=== PATIENT | male | born 1955 | race Caucasian/White ===

== ENCOUNTER → 2024-12-26 09:30 | Outpatient (REF) | payer SELFPAY | LOC: HWRAD 09:30 | PROVIDERS: ATTENDING PHYSICIAN Internal Medicine Cardiovascular Disease; FAMILY PHYSICIAN Internal Medicine | DX: R00.0 Tachycardia, unspecified (principal); Z68.31 Body mass index [BMI] 31.0-31.9, adult; K21.9 Gastro-esophageal reflux disease without esophagitis; D69.6 Thrombocytopenia, unspecified; I10 Essential (primary) hypertension; Z13.6 Encounter for screening for cardiovascular disorders | CPT/HCPCS: 75571 ==

== ENCOUNTER → 2025-01-11 13:47 | Outpatient (REF) | payer OTHER, SELFPAY | LOC: HWRAD 13:47 | PROVIDERS: ATTENDING PHYSICIAN Internal Medicine Cardiovascular Disease; FAMILY PHYSICIAN Internal Medicine | DX: R01.1 Cardiac murmur, unspecified (principal); I25.84 Coronary atherosclerosis due to calcified coronary lesion; Z87.891 Personal history of nicotine dependence; Z82.49 Family history of ischemic heart disease and other diseases of the circulatory system; I10 Essential (primary) hypertension; Z13.6 Encounter for screening for cardiovascular disorders; Z68.31 Body mass index [BMI] 31.0-31.9, adult; K21.9 Gastro-esophageal reflux disease without esophagitis; D69.6 Thrombocytopenia, unspecified | CPT/HCPCS: 71250 ==

== ENCOUNTER 2025-01-26 12:50 | Day surgery (SDC) | payer OTHER, SELFPAY ==
[2025-01-26] VITALS (15 sets, daily range): BP systolic 121–181; BP diastolic 69–121; BMI 32.4
[2025-01-26] MEDS: NSS 290 ML IV (13:53)
[2025-01-26 16:30] LABS: ACT-LR - POC 350 Seconds (116-155)
[2025-01-26 16:53] LABS: ACT-LR - POC 284 Seconds (116-155)
[2025-01-26 17:21] LABS: ACT-LR - POC 361 Seconds (116-155)
[2025-01-26] MEDS: NSS 1000 IV (18:43)
[2025-01-26] MEDS: CRESTOR 20 MG PO (18:45)
--- NOTE | 2025-01-26 19:18 | PTCARENOTE ---
Pt received at 1810 post cath procedure. Right radial band intact and WNL. Denies any pain or discomfort. SR, rate in the 80's to 90's.
--- NOTE | 2025-01-26 19:31 | ITS.CL.PN ---
[facility] - Procedure Note
Procedure
Procedure Note:
CARDIAC CATHETERIZATION REPORT
Date of Procedure: 01/26/2025
Referring: Dr. Alirio Guzman MD
Indication: dyspnea on exertion, positive cardiac stress test, known CAD
PROCEDURE(S)
1. right heart catheterization
2. left heart catheterization
3. coronary angiography
4. iFR LAD
5. IVUS RCA
6. PCI with NAZANIN to distal RCA
7. PCI with NAZANIN to proximal RCA
ACCESS
1. 6F right radial artery (closure: radial band)
2. 5F right antecubital vein (closure: manual hemostasis)
CATHETERS
1. 5F [place]
2. 6F [place]
3. 6F AL1
4. 6F JR4
5. 6F JL3.5
6. 6F JR4 guide
7. 6F XB3.5 guide
MODERATE SEDATION: 75 minutes of moderate sedation was utilized. An independent medical language specialist was present to assist with and help manage the patient's level of consciousness and physiologic status.
HEMODYNAMIC DATA
LV 151/13 (EDP 17) mmHg
AO 126/80 (mean 100) mmHg
RA 14 mmHg
RV 32/11 (EDP 14) mmHg
PA 35/18 (mean 25) mmHg
PCWP 15 mmHg
SaO2 91.4%
SvO2 69.2%
Hb 14.3 g/dL
Weight [ ] kg
CO/CI 6.07/2.90 L/min/m2
SVR 1132 dsc*-5
PVR 132 [place] units
Valve Study: mean gradient 37.67 mmHg at a heart rate of 91 bpm giving a stroke volume index of 31.8 mL and valve are of 0.90 cm2 (0.43 cm2/m2)
CORONARY ANGIOGRAPHY
Dominance: right
LM: Large, normal
LAD: Large vessel giving rise to a large D1 and multiple smaller diagonal branches before wrapping around the apex. There is a 50% stenosis in the mid vessel between D2 and D3. This was further assessed by IFR and found to be negative.
LCx: Large vessel giving rise to a small OM1, large OM 2, moderate caliber OM 3, small LPL 1, and moderate caliber LPL 2 and small LPL 3. There is diffuse mild disease.
RCA: Large vessel giving rise to a moderate caliber RPDA and moderate caliber RPL branch. There is a 60% focal stenosis in the proximal vessel, diffuse up to 40% disease in the mid vessel, and a focal 90% stenosis in the distal vessel just before
the RPDA takeoff.
iFR of mid LAD
Heparin was given to achieve ACT greater than 250. An Omni wire was flushed and zeroed outside the body and then advanced to the left main. The wire introducer was removed and the catheter flushed with saline, after which pressure of the wire and
guide were normalized. The wire was advanced to the mid LAD and iFR recorded at 0.94. On return to the left main, iFR appropriately normalized to ~1.0, confirming lack of wire drift.
PCI with NAZANIN to RCA
Additional heparin was given to achieve ACT greater than 300. A Runthrough wire was placed in the distal RPDA and initial lesion preparation performed with a 2.0 semicompliant balloon with full expansion. IVUS was performed demonstrating a 3.25 mm
reference vessel diameter. Stenting was performed with a 3.0 x 23 mm Xience Skypoint NAZANIN postdilated to high-pressure with a 3.25 mm NC balloon. IVUS demonstrated full stent expansion and apposition with no edge dissections. There is noted to be a
small iatrogenic dissection at the site of the proximal 60% stenosis. Stenting of this area was performed with a 3.25 x 15 mm Xience Skypoint drug-eluting stent postdilated to high-pressure with a 3.5 mm NC balloon. IVUS was performed and
demonstrated full stent sizing and apposition without edge dissection. Final angiographic result was outstanding. The wire and guide were removed and a TR band placed. The patient was loaded with 600 mg of Plavix.
CONCLUSIONS
1. Coronary artery disease as noted with high-grade disease in the distal RCA and and proximal RCA, and IFR negative moderate stenosis in the mid LAD.
2. Hemodynamics with mildly elevated biventricular filling pressures and normal cardiac output
3. Aortic valve study with dual-lumen catheter demonstrates low-flow low-gradient moderate-severe aortic valve stenosis.
RECOMMENDATIONS
1. Aggressive secondary prevention of coronary artery disease.
2. DAPT for at least 6 months with aspirin and Plavix.
3. Cardiac rehab.
4. Close monitoring of symptoms and valve gradients with workup for AVR (TAVR versus TAVR) should valve gradients increase or symptoms persist despite revascularization.
Copy to: Dr. Alirio Guzman MD (protection consultant); Dr. Santosh Manuel MD (PCP)
Signed: Samm Burden MD, PhD
--- NOTE | 2025-01-26 23:58 | PTCARENOTE ---
Patient received at change of shift resting in the bed. Right radial TR band intact. Right brachial dressing C/D/I. Radial pulse palpable. Pox right hand 93-97%, patient on room air. Sinus rhythm on telemetry. The patient denies chest pain or
pressure. Once ordered bedrest was completed the patient ambulated and voided in the bathroom without issue. The TR band initially oozed when air was first removed but was later able to be removed per protocol without further issue, gauze and
tegaderm applied which remains C/D/I. Right brachial site remains C/D/I. Call guardado within reach. Plan of care discussed. Care ongoing.
[2025-01-27 02:59] VITALS: BP 147/83
[2025-01-27 03:45] LABS: Hematocrit 41.0 % (39.0-52.0); Hemoglobin 14.5 g/dL (13.0-18.0); Mean Corp Hgb Conc. 35.4 g/dL (33.0-37.0); Mean Corpuscular Volume 86.1 fL (80.0-94.0); Platelet Count 117 10^3/uL (130-400); Red Cell Dist. Width 14.5 % (11.5-14.5)
[2025-01-27 04:08] LABS: Blood Urea Nitrogen 14 mg/dl (9-20); Calcium 8.8 mg/dl (8.4-10.2); Carbon Dioxide 24 mmol/L (22-30); Chloride 108 mmol/L (98-107); Estimated Creatinine Clearance 90 ml/min; Glucose 88 mg/dl (70-99); HDL Cholesterol 42 mg/dl; LDL Cholesterol, Calculated 32 mg/dl; Magnesium 2.2 mg/dl (1.6-2.3); Potassium 4.0 mmol/L (3.5-5.1); Sodium 139 mmol/L (135-145); Very Low Density Lipoprotein 37 mg/dl (0-30); eGFR > 60.00
[2025-01-27 04:58] LABS: Hepatitis C Antibody Negative (Negative)
[2025-01-27 07:51] VITALS: BP 146/85
--- NOTE | 2025-01-27 08:03 | W.PN.CARDCBS ---
Addendum entered and electronically signed by Samm Burden MD 01/27/25 11:01:
PCI with DESx2 to RCA yesterday, doing well. Cath also notable for mod-severe low flow low gradient with mean gradient 37, valve area 0.9.
Cath site looks clean
Labs stable
Short 7 beat NSVT on tele
--> cont. DAPT with ASA/Plavix for 6 months
--> cont. metop
--> increase statin to high intensity (despite low LDL given severe disease and young age)
--> check Lp(a) as outpatient given significant CAD despite well controlled LDL
--> will need close follow up of aortic valve. if dyspnea continues despite RCA revasc, would recommend further workup for AVR (SAVR vs. TAVR).
Ok for discharge this morning.
Addendum entered and electronically signed by LEANN Vera 01/27/25 09:05:
tele SR with on 7b NSVT o/n, continue metoprolol xl 100mg
Original Note:
Today's Communication / Plan
-
post PCI RCA stable for d/c home
Impression / Plan
-
PCP: Santosh Manuel MD
CDY: Mehran Guzman MD
Impression/Plan:
#Abnormal NST/CAD - post cath with IFR negative mid LAD lesion and distal RCA 90% stenosis post PCI RCA x2 (3.0 x 23 mm, 3.25 x 15 mm Xience Skypoint NAZANIN)
denies cp, rad site stable, tele SR no ectopy
DAPT ASA/Plavix, Stop Isosorbide
LDL 32 TG 189 will increase rosuvastatin to 20mg
Cardiac rehab c/s
#Moderate-Severe - low-flow low-gradient, will need to monitor symptoms and valve gradients for future w/u SAVR vs TAVR
mean gradient 37.67 mmHg at a heart rate of 91 bpm giving a stroke volume index of 31.8 mL and valve are of 0.90 cm2 (0.43 cm2/m2)
#HTN - continue metoprolol xl
#GERD - continue omeprazole
#Pulmonary nodule/mild emphysema - seen on Calcium score CT scan. He is following with Pulmonary outpt. Dyspnea has improved on Ellipta
#Thrombocytopenia - PLT 117, with DAPT will check CBC in 2 weeks
home today
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
Subjective
Date of Service: January 27, 2025
denies cp, sob
Objective
Labs:
01/27/25 03:03
01/27/25 03:03
Labs
Hgb 14.5 g/dL (13.0-18.0) 01/27/25 03:03
Hct 41.0 % (39.0-52.0) 01/27/25 03:03
Plt Count 117 10^3/uL (130-400) L 01/27/25 03:03
Sodium 139 mmol/L (135-145) 01/27/25 03:03
Potassium 4.0 mmol/L (3.5-5.1) 01/27/25 03:03
BUN 14 mg/dl (9-20) 01/27/25 03:03
Creatinine 0.9 mg/dL (0.7-1.3) 01/27/25 03:03
Glucose 88 mg/dl (70-99) 01/27/25 03:03
Vital Signs and I&O:
Vital Signs
Temp Pulse Resp BP Pulse Ox
97.9 F 80 18 147/83 96
01/27/25 02:59 01/27/25 06:00 01/27/25 02:59 01/27/25 02:59 01/27/25 02:59
Vital Signs
Temp Pulse Resp BP Pulse Ox
97.9 F 80 18 147/83 96
01/27/25 02:59 01/27/25 06:00 01/27/25 02:59 01/27/25 02:59 01/27/25 02:59
Physical Exam
Physical Exam
NAD, AOX3
S1, S2, RRR, III/ HECTOR
CTAB, non labored, no wheeze
SNTND Bsx4
R rad site c/d/i no HT, good pulse
[2025-01-27] MEDS: TOPROL XL 100 MG PO (09:11)
[2025-01-27] MEDS: PLAVIX 75 MG PO (09:11)
[2025-01-27] MEDS: PROTONIX 40 MG PO (09:11)
[2025-01-27] MEDS: FLOMAX 0.4 MG PO (09:11)
[2025-01-27] MEDS: PROSCAR 5 MG PO (09:11)
[2025-01-27] MEDS: LOW STRENGTH ASPIRIN 81 MG PO (09:11)
--- NOTE | 2025-01-27 11:14 | W.DS.TRANS ---
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
-
Discharge Instructions:
Discharge Diagnosis/Procedures Angioplasty with stent to RCA x 2
Diet Low Cholesterol
Driving Restrictions No driving for 24 hours
Blood Work Check CBC in 2 weeks
Other Services Cardiac Rehab
Instructions:
Stand-Alone Forms: DC Instructions- Cath/EP Lab
Changes to Home Medications: Yes
Discharge Medications:
DC Medications w/original date entered in [employer]
Aspir-Low 81 mg DAILY 01/26/25
Incruse Ellipta 62.5 mg DAILY 01/26/25
Vitamin C 500 mg DAILY 01/26/25
Vitamin D3 1,000 units DAILY 01/26/25
alfuzosin 10 mg tablet,extended release 24 hr 10 mg PO DAILY 01/26/25
finasteride 5 mg DAILY 01/26/25
loratadine 10 mg capsule 10 mg DAILY 01/26/25
melatonin 3 mg DAILY 01/26/25
metoprolol succinate 100 mg DAILY 01/26/25
omeprazole 20 mg tablet,delayed release 20 mg PO DAILY 01/26/25
clopidogrel 75 mg tablet 75 mg PO DAILY #90 tabs 01/27/25
rosuvastatin 20 mg tablet 20 mg PO QPM #30 tabs 01/27/25
Home Medication Changes
new to plavix, increased rosuvastatin dose
Pending Results: No
--- NOTE | 2025-01-27 11:20 | CM ---
Chart reviewed. Patient is independent of ADLS, lives alone in a 2 [address], 2 BIJAL, 0 DME. Plan is to return home.
== END 2025-01-27 10:11 | disposition home or self-care (01) ==
LOC: CATH 12:50
PROVIDERS: Nurse Practitioner Adult Health; ATTENDING PHYSICIAN Student in an Organized Health Care Education/Training Program; FAMILY PHYSICIAN Internal Medicine; OTHER PHYSICIAN Internal Medicine Cardiovascular Disease
DX: I25.10 Atherosclerotic heart disease of native coronary artery without angina pectoris (principal); D69.6 Thrombocytopenia, unspecified; I10 Essential (primary) hypertension; J43.9 Emphysema, unspecified; R91.1 Solitary pulmonary nodule; K21.9 Gastro-esophageal reflux disease without esophagitis; Z95.5 Presence of coronary angioplasty implant and graft; I35.0 Nonrheumatic aortic (valve) stenosis; Z79.82 Long term (current) use of aspirin; Z79.899 Other long term (current) drug therapy
CPT/HCPCS: 92978; 93799; 99152; 99153; 80048; 80061; 83735; 85027; 85347; 86803; 93005; 93460; C1725; C1753; C1769; C1874; C1887; C1894; C9600; Q9967

== ENCOUNTER 2025-03-03 10:35 | Outpatient (RCR) | payer OTHER, SELFPAY | END 2025-03-03 23:59 | disposition home or self-care (01) | LOC: CRHB 10:35 | PROVIDERS: ATTENDING PHYSICIAN Internal Medicine Cardiovascular Disease | DX: I25.10 Atherosclerotic heart disease of native coronary artery without angina pectoris (principal); Z95.5 Presence of coronary angioplasty implant and graft | CPT/HCPCS: G0422; G0423 ==

== ENCOUNTER 2025-03-31 08:32 | Outpatient (RCR) | payer OTHER, SELFPAY | END 2025-03-31 23:59 | disposition home or self-care (01) | LOC: CRHB 08:32 | PROVIDERS: ATTENDING PHYSICIAN Internal Medicine Cardiovascular Disease | DX: I25.10 Atherosclerotic heart disease of native coronary artery without angina pectoris (principal); Z95.5 Presence of coronary angioplasty implant and graft | CPT/HCPCS: G0422; G0423 ==

== ENCOUNTER → 2025-04-25 08:08 | Outpatient (REF) | payer OTHER, SELFPAY | LOC: HWRAD 08:08 | PROVIDERS: ATTENDING PHYSICIAN Internal Medicine Critical Care Medicine; FAMILY PHYSICIAN Internal Medicine | DX: R91.8 Other nonspecific abnormal finding of lung field (principal) | CPT/HCPCS: 71250 ==

== ENCOUNTER 2025-05-03 08:52 | Outpatient (RCR) | payer OTHER, SELFPAY | END 2025-05-03 23:59 | disposition home or self-care (01) | LOC: CRHB 08:52 | PROVIDERS: ATTENDING PHYSICIAN Internal Medicine Cardiovascular Disease | DX: I25.10 Atherosclerotic heart disease of native coronary artery without angina pectoris (principal); Z95.5 Presence of coronary angioplasty implant and graft | CPT/HCPCS: G0422; G0423 ==